=== PATIENT | female | born 1960 | race Asian ===

== ENCOUNTER 2025-07-11 10:47 | Observation (INO) | payer OTHER, SELFPAY ==
[2025-07-11] VITALS (7 sets, daily range): BP systolic 106–156; BP diastolic 63–84; PULSE 64–75; RESP 16–18; TEMP 36.2–37.2; O2SAT 96–100; BMI 24.0
--- NOTE | 2025-07-11 11:08 | DI.RAD.S_ITS ---
PROCEDURE: XR CHEST 1V INDICATIONS: Chest Pain TECHNIQUE: One view of the chest was acquired. COMPARISON: None. FINDINGS: Surgical changes and devices: None. Lungs and pleura: Lungs are clear. No pleural effusions or pneumothorax. Mediastinum: Mediastinal contours appear normal. Heart size is normal. Bones and chest wall: No suspicious bony lesions. Overlying soft tissues appear unremarkable. IMPRESSION: No acute cardiopulmonary abnormality is seen. Dictated by: Chaz Diaz M.D. on 07/11/2025 at 11:56 Approved by: Chaz Diaz M.D. on 07/11/2025 at 11:57
--- NOTE | 2025-07-11 11:17 | EKG_ITS ---
[address] [address] Test Date: 2025-07-11 Pat Name: Alisia Thakkar Department: [facility] Room: Gender: Female Tax Representative: BERNARDINO : 1960 Requested By: Order Number: [id number] Reading MD: Jesus Christian MD Measurements Intervals [place] Rate: 74 P: 45 SD: 162 QRS: -7 QRSD: 92 T: 7 QT: 408 QTc: 452 Interpretive Statements Normal sinus rhythm Incomplete right bundle branch block NO PRIOR TRACING Electronically Signed On 07-11-2025 17:18:31 PST by Jesus Christian MD
[2025-07-11] MEDS: ASPIRIN 81 MG CHEW TAB 324 MG PO (11:20)
[2025-07-11 11:32] LABS: Add Manual Diff / Slide Review NO; Hematocrit 41.3 % (36-46); Hemoglobin 13.6 g/dL (12.0-16.0); Lymphocytes Absolute Auto 2000 /uL (1100-4500); Mean Corpuscular HGB Conc 33.1 % (30-36); Mean Corpuscular Hemoglobin 29.0 PG (26-34); Mean Corpuscular Volume 87.7 fL (80-100); Platelet Count 252 X10^3/uL (150-400)
[2025-07-11 11:37] LABS: INR 1.0 (0.9-1.3); Prothrombin Time 11.6 SECONDS (9.4-12.5)
--- NOTE | 2025-07-11 11:38 | ED.CHESTPAIN ---
HPI - Chest Pain <Millicent Gutierrez PA-C - Last Filed: 07/11/25 18:24> General Chief Complaint: Chest Pain Stated Complaint: weak, dizzy, shaky 4 days Time Seen by Provider: 07/11/25 11:34 History of Present Illness HPI narrative: Ms. Thakkar is a very pleasant 64-year-old female, from the [facility], speaks Tagalog, with a past medical history of cic-rugqirh-daawrvdcm T2 DM, HTN, HLD, hypothyroidism who presents to the emergency department with her daughter for concern of indigestion/chest pain, nausea, vomiting, weakness and dizziness/shakiness x4 days. Patient moved here from the [facility] in December. She is helping take care of her granddaughter. She has been sleeping less because of this. However since Tuesday she has been reporting indigestion/substernal chest burning and pressure, 2 episodes of nonbloody vomiting, and the feeling of being off balance. Occasional diarrhea. Exercise makes the chest pain worse and resting makes it better however it is still present at rest. She has also been feeling some shortness of breath. She denies lower abdominal pain, dysuria, hematuria, constipation. No recent medication changes. She has been compliant with levothyroxine, metformin, telmisartan, atorvastatin, hydroxyzine as needed for anxiety. She denies any cardiac history. No blood thinner use. No medication allergies. Her daughter translates for her. Related Data Allergies Allergy/AdvReac Type Severity Reaction Status Date / Time No Known Drug Allergies Allergy Verified 07/11/25 11:05 Review of Systems <Millicent Gutierrez PA-C - Last Filed: 07/11/25 18:24> Review of Systems ROS Unobtainable: All systems reviewed & are unremarkable except as noted in HPI and below Exam <Millicent Gutierrez PA-C - Last Filed: 07/11/25 18:24> Narrative Exam Narrative: GENERAL: 64 year old patient appears stated age. Well-developed patient, in no acute distress. HEAD: Atraumatic. Normocephalic. EYES: PERRL. Extraocular motions intact. No scleral icterus. No injection or drainage. ENT: Nose without bleeding, purulent drainage. Airway patent. NECK: Trachea midline. Cervical ROM intact. CARDIOVASCULAR: Regular rate and rhythm. RESPIRATORY: ?Nonlabored respirations. ?Speaking in clear, full sentences. ?Clear to auscultation. Breath sounds equal bilaterally. No wheezes, rales, or rhonchi. ? GASTROINTESTINAL: Abdomen soft, non-tender, nondistended. Bs present. Negative Sahni sign. EXTREMITIES: No LE edema. BACK: Nontender. NEURO: AOx3. ?Clear speech. ?Moves all 4 extremities appropriately. Normal abjfaz-mcba-stopyb. No pronator drift. No facial asymmetry. SKIN: No rash or erythema of visible areas Initial Vital Signs Initial Vital Signs: Vital Signs Temperature 98.6 F 07/11/25 11:05 Pulse Rate 75 07/11/25 11:05 Respiratory Rate 16 07/11/25 11:05 Blood Pressure 156/84 H 07/11/25 11:05 Pulse Oximetry 99 07/11/25 11:05 Oxygen Delivery Method Room Air 07/11/25 11:05 <Radha Villarreal DO - Last Filed: 07/11/25 19:03> Initial Vital Signs Initial Vital Signs: Vital Signs Temperature 98.6 F 07/11/25 11:05 Pulse Rate 75 07/11/25 11:05 Respiratory Rate 16 07/11/25 11:05 Blood Pressure 156/84 H 07/11/25 11:05 Pulse Oximetry 99 07/11/25 11:05 Oxygen Delivery Method Room Air 07/11/25 11:05 Scores <Millicent Gutierrez PA-C - Last Filed: 07/11/25 18:24> HEART Score Heart Score history: Slightly Suspicious Heart Score EKG: Non-Specific repolarization disturbance Heart Score Age: 45-64 years old Heart Score risk factors: > 3 risk factors or hx of atherosclerotic disease Heart Score troponin: < or = to normal limit Heart Score Total: 4 <Radha Villarreal DO - Last Filed: 07/11/25 19:03> HEART Score Heart Score Total: 4 Course <CONSUELO Hankins Last Filed: 07/11/25 18:24> Orders Ordered: ED Orders 07/11/25 11:08 XR chest 1V Stat EKG-12 Lead Stat 07/11/25 11:15 Complete Blood Count AUTO DIFF Stat Comprehensive Metabolic Panel Stat Lipase Stat Magnesium Stat NT-proBNP (BNP-Adult 18+) Stat PTT Partial Thromboplastin Roosevelt Stat Prothrombin Time INR Stat Troponin & CK Cardiac Panel Stat 07/11/25 13:15 Trop I [Troponin I] Stat 07/11/25 13:57 EKG-12 Lead Stat Acetaminophen (Acetaminophen 325 Mg Tablet) 650 mg PO Q6H PRN PRN Reason: Fever/Mild Pain (1-3) Heparin Sodium/Dextrose (Heparin Drip) 25,000 unit in 500 mls @ 15.241 mls/hr IV CONT MAURA; Protocol Last Admin: 07/11/25 18:24 Dose: 12 units/kg/hr, 15.241 mls/hr Documented By: MELODY Co-signed By: JESSEE Naloxone HCl (Naloxone 0.4 Mg/Ml Vial) 0.2 mg IV Q2MIN PRN PRN Reason: Opiate Reversal Discontinued Medications Aspirin (Aspirin 81 Mg Chew Tab) 324 mg PO NOW ONE Stop: 07/11/25 11:09 Last Admin: 07/11/25 11:20 Dose: 324 mg Documented By: GEORGE Al Hydrox/Mg Hydrox/Simethicone 30 ml/ Lidocaine HCl 15 ml 0 ml PO NOW ONE Stop: 07/11/25 11:56 Last Admin: 07/11/25 12:58 Dose: 45 ml Documented By: MIMI Heparin Sodium (Porcine) (Heparin 5,000 Unit/Ml Vial) 4,000 unit 60 unit/kg (4000 unit) IV NOW ONE Stop: 07/11/25 16:47 Last Admin: 07/11/25 18:23 Dose: 4,000 unit Documented By: MELODY Sodium Chloride (Normal Saline 0.9%) 1,000 mls @ 1,000 mls/hr IV BOLUS ONE Stop: 07/11/25 12:54 Last Infusion: 07/11/25 13:48 Dose: Infused Documented By: Admin: 07/11/25 12:57 Dose: 1,000 mls/hr Documented By: MIMI Meclizine HCl (Meclizine Hcl 12.5 Mg Tablet) 25 mg PO NOW ONE Stop: 07/11/25 11:56 Last Admin: 07/11/25 12:58 Dose: 25 mg Documented By: MIMI Vital Signs Vital signs: Vital Signs - 8 hr 07/11/25 11:05 07/11/25 11:47 07/11/25 15:30 Temperature 98.6 F 98.9 F Pulse Rate 75 68 71 Respiratory Rate 16 16 16 Blood Pressure 156/84 H 147/65 H 139/63 Pulse Oximetry 99 98 100 Oxygen Delivery Method Room Air Room Air <Radha Villarreal DO - Last Filed: 07/11/25 19:03> Orders Ordered: ED Orders 07/11/25 11:08 XR chest 1V Stat EKG-12 Lead Stat 07/11/25 11:15 Complete Blood Count AUTO DIFF Stat Comprehensive Metabolic Panel Stat Lipase Stat Magnesium Stat NT-proBNP (BNP-Adult 18+) Stat PTT Partial Thromboplastin Roosevelt Stat Prothrombin Time INR Stat Troponin & CK Cardiac Panel Stat 07/11/25 13:15 Trop I [Troponin I] Stat 07/11/25 13:57 EKG-12 Lead Stat Acetaminophen (Acetaminophen 325 Mg Tablet) 650 mg PO Q6H PRN PRN Reason: Fever/Mild Pain (1-3) Heparin Sodium/Dextrose (Heparin Drip) 25,000 unit in 500 mls @ 15.241 mls/hr IV CONT MAURA; Protocol Last Admin: 07/11/25 18:24 Dose: 12 units/kg/hr, 15.241 mls/hr Documented By: MELODY Co-signed By: JESSEE Naloxone HCl (Naloxone 0.4 Mg/Ml Vial) 0.2 mg IV Q2MIN PRN PRN Reason: Opiate Reversal Discontinued Medications Aspirin (Aspirin 81 Mg Chew Tab) 324 mg PO NOW ONE Stop: 07/11/25 11:09 Last Admin: 07/11/25 11:20 Dose: 324 mg Documented By: GEORGE Al Hydrox/Mg Hydrox/Simethicone 30 ml/ Lidocaine HCl 15 ml 0 ml PO NOW ONE Stop: 07/11/25 11:56 Last Admin: 07/11/25 12:58 Dose: 45 ml Documented By: MIMI Heparin Sodium (Porcine) (Heparin 5,000 Unit/Ml Vial) 4,000 unit 60 unit/kg (4000 unit) IV NOW ONE Stop: 07/11/25 16:47 Last Admin: 07/11/25 18:23 Dose: 4,000 unit Documented By: MELODY Sodium Chloride (Normal Saline 0.9%) 1,000 mls @ 1,000 mls/hr IV BOLUS ONE Stop: 07/11/25 12:54 Last Infusion: 07/11/25 13:48 Dose: Infused Documented By: Admin: 07/11/25 12:57 Dose: 1,000 mls/hr Documented By: [facility] Meclizine HCl (Meclizine Hcl 12.5 Mg Tablet) 25 mg PO NOW ONE Stop: 07/11/25 11:56 Last Admin: 07/11/25 12:58 Dose: 25 mg Documented By: [facility] Vital Signs Vital signs: Vital Signs - 8 hr 07/11/25 11:05 07/11/25 11:47 07/11/25 15:30 Temperature 98.6 F 98.9 F Pulse Rate 75 68 71 Respiratory Rate 16 16 16 Blood Pressure 156/84 H 147/65 H 139/63 Pulse Oximetry 99 98 100 Oxygen Delivery Method Room Air Room Air MDM - Chest Pain <Millicent Gutierrez PA-C - Last Filed: 07/11/25 18:24> Medical Records Data Medical records narrative: None available. Lab Data 07/11/25 11:15 07/11/25 11:15 Labs: Lab Results 07/11/25 07/11/25 Range/Units 11:15 13:15 WBC 7.1 (4.5-11.0) X10^3/uL RBC 4.71 (4.0-5.2) X10^6/uL Hgb 13.6 (12.0-16.0) g/dL Hct 41.3 (36-46) % MCV 87.7 (80-100) fL MCH 29.0 (26-34) PG MCHC 33.1 (30-36) % RDW 13.7 (11.6-14.8) % Plt Count 252 (150-400) X10^3/uL Neut % (Auto) 66.0 (50-75) % Lymph % (Auto) 27.6 (25-40) % Sherman % (Auto) 5.6 (3-14) % Eos % (Auto) 0.4 L (2-4) % Baso % (Auto) 0.4 (0-2) % Neut # (Auto) 4700 (9256-8864) /uL Lymph # (Auto) 2000 (9930-0435) /uL Sherman # (Auto) 400 (0-900) /uL Eos # (Auto) 0 (0-450) /uL Baso # (Auto) 0 (0-100) /uL PT 11.6 (9.4-12.5) SECONDS INR 1.0 (0.9-1.3) APTT 30 (25.1-36.5) SECONDS Sodium 141 (137-145) mmol/L Potassium 3.9 (3.4-5.1) mmol/L Chloride 106 (98-107) mmol/L Carbon Dioxide 27 (22-32) mmol/L BUN 14 (7-17) mg/dL Creatinine 0.74 (0.52-1.04) mg/dL Estimated GFR > 60 (>60) mL/min BUN/Creatinine Ratio 18.9 (6-22) Glucose 118 H (70-99) mg/dL Calcium 9.1 (8.4-10.2) mg/dL Magnesium 2.2 (1.6-2.3) mg/dL Total Bilirubin 0.7 (0.2-1.3) mg/dL AST 27 (14-36) IU/L ALT 22 (<35) IU/L Alkaline Phosphatase 59 (38-126) U/L Total Creatine Kinase 85 (30-135) U/L Troponin I < 0.012 < 0.012 (0.01-0.034) ng/mL NT-Pro-B Natriuret Pep < 20 (<125) pg/mL Total Protein 8.1 (6.3-8.2) g/dL Albumin 4.7 (3.5-5.0) g/dL Globulin 3.4 (1.7-4.1) g/dL Albumin/Globulin Ratio 1.4 (1.0-2.8) Lipase 92 (23-300) U/L Imaging Data Chest x-ray: Radiologist's Impression: PROCEDURE: XR CHEST 1V INDICATIONS: Chest Pain TECHNIQUE: One view of the chest was acquired. COMPARISON: None. FINDINGS: Surgical changes and devices: None. Lungs and pleura: Lungs are clear. No pleural effusions or pneumothorax. Mediastinum: Mediastinal contours appear normal. Heart size is normal. Bones and chest wall: No suspicious bony lesions. Overlying soft tissues appear unremarkable. IMPRESSION: No acute cardiopulmonary abnormality is seen. Dictated by: Chaz Diaz M.D. on 07/11/2025 at 11:56 Approved by: Chaz Diaz M.D. on 07/11/2025 at 11:57 ECG Data Interpretation: EKG reveals normal sinus rhythm with a rate of 74 beats per minute, QTC of 452. T-wave inversion V1, V3. [facility] Narrative Medical decision making narrative: 64-year-old female, from the [facility], speaks Tagalog, with a past medical history of lsr-rqmompm-ymmxhkhcc T2 DM, HTN, HLD, hypothyroidism who presents to the emergency department with her daughter for concern of indigestion, nausea, vomiting, weakness and dizziness/shakiness x4 days. Differential diagnosis includes but isn't limited to ACS/[place], angina, pneumonia, GERD, medication side effect, hypoglycemia, hyperglycemia, vertigo, etc. On exam the patient is in no acute distress, nontoxic appearing, vital signs appropriate. She has no reproducible nystagmus, no facial asymmetry, no pronator drift, normal [id number]-yxjp-yirdtr. She is reporting multiple symptoms but primarily increased indigestion/reflux associated with feeling off balance, 2 episodes of nonbloody vomiting and also some increased loose stools. No cardiac history but she does have risk factors including diabetes, hyperlipidemia, hypertension. Concerned for possible atypical ACS. Chest pain order set initiated in triage, patient given aspirin. EKG reviewed with the attending Dr. Villarreal, T-wave inversion V3. Chest x-ray reveals no acute cardiopulmonary abnormality. Labs within normal limits, troponin undetectable x2, negative BNP, no elevation of LFTs. No abdominal tenderness on subsequent exams. Heart score 4. Repeat troponin undetectable. However patient's EKG does have some subtle changes with T-wave inversions anterior leads. No improvement in symptoms after aspirin, GI cocktail, meclizine, IVF. She still feels chest pressure. We will talk with Cardiology given patient risk factors and EKG findings. 1615: Discussed the case with the customer development representative, Dr. Mondragon. He recommends admission for stress test. He recommends admission to medicine and he will consult. I spoke with hospitalist, Dr. Grullon. Given patient's concerning EKG findings, he had a discussion with Dr. Mondragon and it was determined to start the patient on heparin. I reviewed bleeding risk factors with the patient and she denies any hematemesis, melena, hematochezia, hematuria, recent trauma, prior hemorrhagic stroke or any other concern for bleeding risk at this time. She is agreeable to start heparin. Patient is stable for transfer to the floor at this time, all questions answered. <Radha Villarreal, DO - Last Filed: 07/11/25 19:03> Lab Data Labs: Lab Results 07/11/25 07/11/25 Range/Units 11:15 13:15 WBC 7.1 (4.5-11.0) X10^3/uL RBC 4.71 (4.0-5.2) X10^6/uL Hgb 13.6 (12.0-16.0) g/dL Hct 41.3 (36-46) % MCV 87.7 (80-100) fL MCH 29.0 (26-34) PG MCHC 33.1 (30-36) % RDW 13.7 (11.6-14.8) % Plt Count 252 (150-400) X10^3/uL Neut % (Auto) 66.0 (50-75) % Lymph % (Auto) 27.6 (25-40) % Sherman % (Auto) 5.6 (3-14) % Eos % (Auto) 0.4 L (2-4) % Baso % (Auto) 0.4 (0-2) % Neut # (Auto) 4700 (5068-1406) /uL Lymph # (Auto) 2000 (5624-4068) /uL Sherman # (Auto) 400 (0-900) /uL Eos # (Auto) 0 (0-450) /uL Baso # (Auto) 0 (0-100) /uL PT 11.6 (9.4-12.5) SECONDS INR 1.0 (0.9-1.3) APTT 30 (25.1-36.5) SECONDS Sodium 141 (137-145) mmol/L Potassium 3.9 (3.4-5.1) mmol/L Chloride 106 (98-107) mmol/L Carbon Dioxide 27 (22-32) mmol/L BUN 14 (7-17) mg/dL Creatinine 0.74 (0.52-1.04) mg/dL Estimated GFR > 60 (>60) mL/min BUN/Creatinine Ratio 18.9 (6-22) Glucose 118 H (70-99) mg/dL Calcium 9.1 (8.4-10.2) mg/dL Magnesium 2.2 (1.6-2.3) mg/dL Total Bilirubin 0.7 (0.2-1.3) mg/dL AST 27 (14-36) IU/L ALT 22 (<35) IU/L Alkaline Phosphatase 59 (38-126) U/L Total Creatine Kinase 85 (30-135) U/L Troponin I < 0.012 < 0.012 (0.01-0.034) ng/mL NT-Pro-B Natriuret Pep < 20 (<125) pg/mL Total Protein 8.1 (6.3-8.2) g/dL Albumin 4.7 (3.5-5.0) g/dL Globulin 3.4 (1.7-4.1) g/dL Albumin/Globulin Ratio 1.4 (1.0-2.8) Lipase 92 (23-300) U/L Discharge Plan Departure Patient Disposition: Admitted as Observation Clinical Impression: Chest pain Qualifiers: Chest pain type: unspecified Qualified Code(s): R07.9 - Chest pain, unspecified Admit Date/Time: 07/11/25 17:14 Admit Provider: Triston Grullon ED Sign-out <Radha Villarreal DO - Last Filed: 07/11/25 19:03> Cosign ED Attending Cosignature Attestation: I was immediately available in the department for consultation. Patient case discussed. Concern for potential cardiac cause of symptoms Labs were reviewed, troponins negative x2, BNP is less than 20. Chest x-ray shows no acute cardiopulmonary abnormality. EKG 1. Showed sinus rhythm nonspecific change T-wave inverted in V3 and 3 but not appreciated in other leads contiguously. On repeat EKG patient appears to have T-wave inverted in V3 and V4. Plan for observation case was discussed with the cardiology, Dr. Villarreal and hospitalist who also confirmed with Cardiology. Dr. Grullon accepts has asked us to start heparin drip.
[2025-07-11 11:40] LABS: Alanine Aminotransferase 22 IU/L (<35); Albumin 4.7 g/dL (3.5-5.0); Albumin Globulin Ratio 1.4 (1.0-2.8); Alkaline Phosphatase 59 U/L (38-126); Blood Urea Nitrogen 14 mg/dL (7-17); Calcium 9.1 mg/dL (8.4-10.2); Carbon Dioxide 27 mmol/L (22-32); Chloride 106 mmol/L (98-107); Creatine Kinase 85 U/L (30-135); Estimated Glomerular Filt Rate > 60 mL/min (>60); Globulin 3.4 g/dL (1.7-4.1); Glucose 118 mg/dL (70-99); HEMOLYSIS < 15 (0-50); Lipase 92 U/L (23-300); Magnesium 2.2 mg/dL (1.6-2.3); PTT Partial Thromboplastin Tim 30 SECONDS (25.1-36.5); Potassium 3.9 mmol/L (3.4-5.1); Sodium 141 mmol/L (137-145); Total Protein 8.1 g/dL (6.3-8.2)
[2025-07-11 11:52] LABS: NT-proBNP (BNP-Adult 18+) < 20 pg/mL (<125); Troponin I < 0.012 ng/mL (0.01-0.034)
[2025-07-11] MEDS: SODIUM CHLORIDE 0.9% 1,000 ML 1000 ML IV (12:57)
[2025-07-11] MEDS: MAG HYDROX/ALUMINUM/SIMETH SUS 30 ML, LIDOCAINE VISCOUS 2% 15 ML PO (12:58)
[2025-07-11] MEDS: MECLIZINE HCL 12.5 MG TABLET 25 MG PO (12:58)
[2025-07-11 13:52] LABS: Troponin I < 0.012 ng/mL (0.01-0.034)
--- NOTE | 2025-07-11 13:57 | EKG_ITS ---
[facility] [address] [place] [address] Test Date: 2025-07-11 Pat Name: Alisia Thakkar Department: Room: Gender: Female Photo Mask Inspector: BERNARDINO : 1960 Requested By: Order Number: [id number] Reading MD: Jesus Christian MD Measurements Intervals Tyler Rate: 67 P: 47 DC: 170 QRS: -10 QRSD: 84 T: -9 QT: 430 QTc: 454 Interpretive Statements Normal sinus rhythm Nonspecific ST and T wave abnormality Electronically Signed On 07-11-2025 17:19:07 PST by Jesus Christian MD
--- NOTE | 2025-07-11 17:59 | P.HP_ITS ---
History of Present Illness History of Present Illness Date Patient Seen: 07/11/25 Time Patient Seen: 17:50 Chief complaint: weak, dizzy, shaky 4 days Narrative: 64-year-old woman from the [facility] who has lived with her daughter for the past year, speaking Tagalog and a small amount of Czech, with translation provided by her daughter at bedside today, presents with chest pressure for the past several days, nausea, vomiting, weakness and dizziness. She reports that the chest discomfort and burning feeling seems worse with exertion. She also has a longstanding history of indigestion and ?acid? symptoms and occasional diarrhea. In the emergency department her heart score was 4, and EKG showed variable dynamic T-wave changes detailed below, with normal laboratory evaluation and to serial negative troponins. Cardiology was consulted and recommend heparinization and evaluation to include stress testing and possible angiography. Past medical history: Diabetes, hypertension, hyperlipidemia, hypothyroidism. She denies history of heart problems. Medications: Metformin, telmisartan, atorvastatin, levothyroxine, hydroxyzine Allergies: No known drug allergies Social history: She is been in [place] since December, having moved from the [facility] to care for granddaughter. No history of tobacco use. No alcohol use or drug use. Family history: No known premature coronary artery disease. EXAM: GENERAL: This is a well-nourished, well-developed patient, in no apparent distress. EYES: Pupils equal round and reactive. Extraocular motions intact. No scleral icterus. No injection or drainage. ENT: Mucous membranes pink and moist. NECK: Trachea midline. No JVD, bruits or lymphadenopathy. Supple, nontender, no meningeal signs. CARDIOVASCULAR: Regular rate and rhythm without murmurs, gallops, or rubs. RESPIRATORY: Clear to auscultation. GASTROINTESTINAL: Abdomen soft, non-tender, nondistended. EXTREMITIES: No clubbing, cyanosis, or edema. NEUROLOGIC: Alert, oriented, speech fluent, full upper and lower motor strength, no focal deficits evident. DERMATOLOGIC: No rashes or skin lesions. EKG #1 at 11:17 a.m.: Normal sinus rhythm at 74 beats minute, incomplete right bundle branch block pattern, T-wave inversions V1 through V3 EKG #2 at 1:57 p.m.: Normal sinus rhythm at 67 beats per minute, incomplete right bundle branch block pattern, T-wave in lead V1 through V4 Chest x-ray 07/11/2025: No acute cardiopulmonary abnormality is seen. Impression: 1. Chest pain, rule out atypical acute coronary syndrome. 2. Diabetes. 3. Hypertension. 4. Hyperlipidemia. 5. Hypothyroidism. Plan: -admit to observation -nuclear medicine stress testing -IV heparin infusion -serial cardiac enzymes -monitor on telemetry -continue routine medications -sliding scale insulin coverage/diabetic diet DVT prophylaxis: Addressed on heparin Code status: Full code. Her daughter is her surrogate decision maker. Meds Home Medications and Allergies Allergies Allergy/AdvReac Type Severity Reaction Status Date / Time No Known Drug Allergies Allergy Verified 07/11/25 11:05 Exam Vital Signs (past 8 hours): - 07/11/25 11:05 07/11/25 11:47 07/11/25 15:30 Temperature 98.6 F 98.9 F Pulse Rate 75 68 71 Respiratory Rate 16 16 16 Blood Pressure 156/84 H 147/65 H 139/63 Pulse Oximetry 99 98 100 Oxygen Delivery Method Room Air Room Air Oxygen Delivery Method Room Air Objective Labs 07/11/25 11:15 07/11/25 11:15 Labs: Laboratory Results - last 24 hr 07/11/25 07/11/25 11:15 13:15 WBC 7.1 RBC 4.71 Hgb 13.6 Hct 41.3 MCV 87.7 MCH 29.0 MCHC 33.1 RDW 13.7 Plt Count 252 Neut % (Auto) 66.0 Lymph % (Auto) 27.6 Jessamine % (Auto) 5.6 Eos % (Auto) 0.4 L Baso % (Auto) 0.4 Neut # (Auto) 4700 Lymph # (Auto) 2000 Jessamine # (Auto) 400 Eos # (Auto) 0 Baso # (Auto) 0 PT 11.6 INR 1.0 APTT 30 Sodium 141 Potassium 3.9 Chloride 106 Carbon Dioxide 27 BUN 14 Creatinine 0.74 Estimated GFR > 60 BUN/Creatinine Ratio 18.9 Glucose 118 H Calcium 9.1 Magnesium 2.2 Total Bilirubin 0.7 AST 27 ALT 22 Alkaline Phosphatase 59 Total Creatine Kinase 85 Troponin I < 0.012 < 0.012 NT-Pro-B Natriuret Pep < 20 Total Protein 8.1 Albumin 4.7 Globulin 3.4 Albumin/Globulin Ratio 1.4 Lipase 92 Assessment & Plan Time-Based Coding :: [TOTAL MINUTES] spent with patient and on the chart (including review of chart, obtaining history, exam, reviewing outside data, placing orders, documenting exam and treatment plan, and counseling patient) on [DATE]. PROFEE [employer] Document charge(s): Yes
--- NOTE | 2025-07-11 18:17 | DI.NM.S_ITS ---
PROCEDURE: NM SHEY PERF SPECT REST & STR Rest and exercise myocardial perfusion SPECT with gated imaging and ejection fraction RADIOPHARMACEUTICAL: 10.8 mCi Tc-99m sestamibi IV at rest and 26.1 mCi Tc-99m sestamibi IV at peak exercise. A 8-een-fkvscbor was performed. INDICATIONS: Chest pain TECHNIQUE: Radiopharmaceutical was injected at peak stress test, and also at rest. SPECT images were obtained. SPECT myocardial perfusion images were displayed in short axis, horizontal long axis, and vertical long axis views. Gated images were reviewed using [employer] software. COMPARISON: None. CARDIAC STRESS: A standard Carlos A treadmill exercise tolerance test was performed by the patient under the supervision of an attending staff. The patient exercised for 3 minutes and 43 seconds; 4.6 METS; functional aerobic impairment (JAYLIN) is +43%. Hemodynamic data: There is normal blood pressure response to exercise stress but an accelerated heart rate response. Patient achieved 92% of maximum predicted heart rate at peak exercise. Peak blood pressure 180/88. Symptoms: Patient denied chest pain during exercise. EKG: No diagnostic EKG changes of ischemia; no ectopy. FINDINGS: Raw data: There is good myocardial labeling by radiotracer. No significant motion artifacts. Odzb-fg-mkznc ratio is 0.21 (normal is less than 0.38 for sestamibi tracer, and less than 0.50 for thallium tracer). Left ventricle function: Gated images demonstrate normal left ventricle wall thickening. No segmental wall motion abnormality. No transient ischemic dilation; TID is 0.95 (normal less than 1.3). The left ventricle resting end-diastolic volume is 80 mL. Left ventricle stress ejection fraction is >75%; normal values are above 45%. Myocardial perfusion: There is normal distribution of activity in the left and right ventricular myocardium. No fixed or reversible perfusion defects. IMPRESSION: Low risk study for ischemia. No evidence of exercise-induced ischemia on ECG or SPECT imaging. Normal LV size with hyperdynamic function. Accelerated heart rate response. Normal blood pressure response. Reduced exercise capacity. Dictated by: Zoe Chris D.O. on 07/12/2025 at 13:04 Approved by: Zoe Chris D.O. on 07/12/2025 at 13:07
[2025-07-11] MEDS: HEPARIN 5,000 UNIT/ML VIAL 4000 UNIT IV (18:23)
[2025-07-11] MEDS: HEPARIN DRIP 25,000 UNIT/500 ML IV.SOLN 15.241 UNIT IV (18:24)
--- NOTE | 2025-07-11 18:55 | PC.NURSE ---
Pt arrived from ED to short stay unit at 1813, ambulated independently into room/bed. Tele fire protection engineer in [facility] used for assessment. A&Ox4, c/o pain 5/10 chest pain, lung sounds CTA, bowel sounds present, CMS+ bilaterally throughout. Tele placed per orders, SB. Heparin gtt started per orders. Pt oriented to room and call light. Bed in low position, call light within reach, bed alarm activated.
[2025-07-11 22:30] LABS: Alanine Aminotransferase 20 IU/L (<35); Albumin 4.0 g/dL (3.5-5.0); Albumin Globulin Ratio 1.4 (1.0-2.8); Alkaline Phosphatase 57 U/L (38-126); Blood Urea Nitrogen 14 mg/dL (7-17); Calcium 8.6 mg/dL (8.4-10.2); Carbon Dioxide 24 mmol/L (22-32); Chloride 110 mmol/L (98-107); Estimated Glomerular Filt Rate > 60 mL/min (>60); Globulin 2.8 g/dL (1.7-4.1); Glucose 152 mg/dL (70-99); HEMOLYSIS < 15 (0-50); Potassium 3.3 mmol/L (3.4-5.1); Sodium 143 mmol/L (137-145); Total Protein 6.8 g/dL (6.3-8.2)
[2025-07-11 22:42] LABS: Troponin I < 0.012 ng/mL (0.01-0.034)
[2025-07-12 01:52] LABS: PTT Partial Thromboplastin Tim 172 SECONDS (25.1-36.5)
--- NOTE | 2025-07-12 02:06 | PC.NURSE ---
This RN used ruby rails developer Kiersten Tan #[id number] to educatie patient to room and plan of care. Patient acknowledged and all questions were answered with service.
[2025-07-12 03:50] VITALS: BP 108/66; PULSE 64; RESP 16; TEMP 36.5; O2SAT 97
[2025-07-12 07:41] LABS: Add Manual Diff / Slide Review NO; Hematocrit 37.7 % (36-46); Hemoglobin 12.8 g/dL (12.0-16.0); Lymphocytes Absolute Auto 1900 /uL (1100-4500); Mean Corpuscular HGB Conc 33.8 % (30-36); Mean Corpuscular Hemoglobin 29.5 PG (26-34); Mean Corpuscular Volume 87.3 fL (80-100); Platelet Count 226 X10^3/uL (150-400)
[2025-07-12 07:54] LABS: Magnesium 2.3 mg/dL (1.6-2.3)
[2025-07-12 07:55] LABS: Cholesterol 75 mg/dL (140-199); HDL Cholesterol 36 mg/dL (40-60); Triglycerides 55 mg/dL (35-150)
[2025-07-12 07:59] LABS: Hemoglobin A1C% w Est Avg Glu 5.8 % (4.0-6.0)
[2025-07-12 08:05] LABS: Troponin I < 0.012 ng/mL (0.01-0.034)
[2025-07-12 08:27] LABS: Thyroid Stimulating Hormone 0.879 uIU/mL (0.47-4.68)
--- NOTE | 2025-07-12 13:07 | P.DS_ITS ---
History of Present Illness History of Present Illness Date Patient Seen: 07/12/25 Time Patient Seen: 13:07 Chief complaint: weak, dizzy, shaky 4 days Narrative: 64-year-old woman from the [facility] who has lived with her daughter for the past year, speaking Tagalog and a small amount of Danish, with translation provided by her daughter at bedside today, presents with chest pressure for the past several days, nausea, vomiting, weakness and dizziness. She reports that the chest discomfort and burning feeling seems worse with exertion. She also has a longstanding history of indigestion and ?acid? symptoms and occasional diarrhea. In the emergency department her heart score was 4, and EKG showed variable dynamic T-wave changes detailed below, with normal laboratory evaluation and to serial negative troponins. Cardiology was consulted and recommend heparinization and evaluation to include stress testing and possible angiography. Social history: She is been in [place] since December, having moved from the [facility] to care for granddaughter. No history of tobacco use. No alcohol use or drug use. Discharge Providers Provider Date of admission: 07/11/25 17:14 Discharge Date: 07/12/25 Discharge provider: Afua Del Rio MD Summary Hospital Course Hospital Course: To Summarize: Cardiac scan notable for decreased exercise tolerance but normal imaging. In discussion with daughter and the patient it becomes clear that acid reflux is likely the cause of her symptoms so Protonix will be initiated. 1. Substernal Chest pain at rest/Weakness/Nausea, ruled out atypical acute coronary syndrome. 2. Diabetes. 3. Hypertension. 4. Hyperlipidemia. 5. Hypothyroidism. Plan: -Home and PCP followup -nuclear medicine stress testing negative for CAD -IV heparin infusion stopped -serial cardiac enzymes all negative Status at Discharge Cognitive/behavioral status at discharge: at baseline, oriented Functional status at discharge: independent ambulation Overall status at discharge: patient is back to baseline Time Spent with Patient Time spent: Less than 30 minutes Exam Vital Signs (past 8 hours): Oxygen Delivery Method Room Air Oxygen Flow Rate 0 Narrative Exam Narrative: Alert and oriented x3. Heart is regular rate and rhythm without murmur. Lungs are clear to auscultation bilaterally. Extremities have no ankle edema. Objective Labs 07/12/25 06:25 07/11/25 21:51 Labs: Laboratory Results - last 24 hr 12/11/25 12/11/25 12/11/25 13:15 18:53 21:51 WBC RBC Hgb Hct MCV MCH MCHC RDW Plt Count Neut % (Auto) Lymph % (Auto) [place] % (Auto) Eos % (Auto) Baso % (Auto) Neut # (Auto) Lymph # (Auto) [place] # (Auto) Eos # (Auto) Baso # (Auto) APTT Sodium 143 Potassium 3.3 L Chloride 110 H Carbon Dioxide 24 BUN 14 Creatinine 0.63 Estimated GFR > 60 BUN/Creatinine Ratio 22.2 H Glucose 152 H POC Whole Bld Glucose 100 H Hemoglobin A1c Calcium 8.6 Magnesium Total Bilirubin 0.6 AST 26 ALT 20 Alkaline Phosphatase 57 Troponin I < 0.012 < 0.012 Total Protein 6.8 Albumin 4.0 Globulin 2.8 Albumin/Globulin Ratio 1.4 Triglycerides Cholesterol LDL Cholesterol, Calc HDL Cholesterol TSH 07/12/25 07/12/25 07/12/25 01:19 06:25 06:35 WBC 6.5 RBC 4.32 Hgb 12.8 Hct 37.7 MCV 87.3 MCH 29.5 MCHC 33.8 RDW 13.6 Plt Count 226 Neut % (Auto) 62.2 Lymph % (Auto) 29.5 [place] % (Auto) 5.9 Eos % (Auto) 1.7 L Baso % (Auto) 0.7 Neut # (Auto) 4100 Lymph # (Auto) 1900 [place] # (Auto) 400 Eos # (Auto) 100 Baso # (Auto) 0 APTT 172 H* D Sodium Potassium Chloride Carbon Dioxide BUN Creatinine Estimated GFR BUN/Creatinine Ratio Glucose POC Whole Bld Glucose Hemoglobin A1c 5.8 Calcium Magnesium 2.3 Total Bilirubin AST ALT Alkaline Phosphatase Troponin I < 0.012 Total Protein Albumin Globulin Albumin/Globulin Ratio Triglycerides 55 Cholesterol 75 L LDL Cholesterol, Calc 28 HDL Cholesterol 36 L TSH 0.879 [facility] Medical History (Updated 07/12/25 @ 13:36 by Afua Del Rio MD) Diabetes mellitus HLD (hyperlipidemia) Hypothyroidism HTN (hypertension) Social History household members: family Smoking Status: Never smoker alcohol intake: never Discharge Plan Discharge Plan Patient Disposition: Home Provider Discharge Comment: Follow up with your PCP at [facility] in 2 weeks. Discharge orders & Medications Prescriptions: New pantoprazole [Protonix] 40 mg tablet,delayed release (DR/EC) 40 mg PO DAILY Qty: 90 0RF Continued atorvastatin 40 mg tablet 40 mg PO DAILY levothyroxine 75 mcg tablet 75 mcg PO DAILY hydroxyzine HCl 25 mg tablet 25 mg PO ONCE PM PRN (Reason: anxiety) telmisartan 20 mg tablet 30 mg PO DAILY metformin 500 mg tablet extended release 24 hr 500 mg PO BID Visit Report/Discharge Packet Instructions: Congestive Heart Failure (Alternative Therapy), Heart-Healthy Diet, Heart Healthy Physical Activity, Pantoprazole Stand Alone Forms: Congestive Heart Failure, Patient Portal/API, Stroke Signs & Symptoms Discharge Data Attending Provider: Triston Grullon Admit Date/Time: 07/11/25 17:14 Quality VTE Deep Vein Thrombosis/Pulmonary Embolism Present on Admission: No
[2025-07-12 13:16] VITALS: BP 120/79; PULSE 72
[2025-07-12] MEDS: LEVOTHYROXINE 75 MCG TABLET PO (13:16)
[2025-07-12] MEDS: POTASSIUM CHLORIDE 20 MEQ TAB 40 MEQ PO (13:16)
[2025-07-12] MEDS: LOSARTAN 25 MG TABLET 37.5 MG PO (13:16)
[2025-07-12 13:24] VITALS: BP 120/79; PULSE 72; RESP 16; TEMP 36.1; O2SAT 97
--- NOTE | 2025-07-12 13:30 | PC.NURSE ---
patient's IV heparin gtt paused and then discontinued per Dr. Bañuelos for stress test today. Patient NPO this morning prior, denies pain, denies questions or concerns. Patient back from test and her daughter is at bedside. Dr. Del Rio down to see patient and discharge her to home.
--- NOTE | 2025-07-12 13:51 | CM.DANOTE ---
Initial DCP Assessment Note. Review EMR and PT Interview. Met with patient at bedside to discuss discharge needs.PT is alert x 4 sitting up in chair. No acute distress. Independent. Lives with Ronny DANIEL.. Payor:??[facility] PCP: ?[facility] Summary & Plan:?64 y/o female arrived to ED via POV c/o Chest Pain. Admitted OBS. Dx. Chest Pain. Plan: Cardiology consult. Stress Test. Discharge Planning/Care Management CM Discharge Assessment Start: 07/11/25 18:13 Freq: Status: Active Protocol: Document 07/12/25 13:50 SM (Rec: 07/12/25 13:51 SM [id number]) Discharge Planning Assessment Assigned Discharge Lorene Bernal RN CM Crossbar Switch Adjuster Provider [facility]. Insurance [facility] Advance Directives? No History Provided By Patient,Family Member Has Patient been No admitted in last 30 days? Prior Living House Arrangements Household Members family Type of Relies on Others transporation used prior to admit Independent with ADL Yes 's Is patient alert and Yes oriented? Barriers to No Discharge Referrals Initiated None needed Review Status In Process Please Provide Date 07/12/25 Initial DC Assessment Was Performed Next Review Type Continued Stay Review
--- NOTE | 2025-07-12 14:06 | PC.NURSE ---
patient d/c teaching done at bedside with daughter present. Patinet IV and tele tue. removed. Pt tani. well. Pt. was able to sign for self. Agrees and understands all d/c instructions. States she has a appt. w/ PCP on Tuesday, advised pt and family to keep appt. Pt req. to walk and declined use of a WC at d/c. Patient and family where escorted out to private vehicle by nurse from Urology clinic ([facility]). Patient leaves in stable condition, VSS.
== END 2025-07-12 14:19 | disposition home or self-care (01) ==
LOC: ED 11:34 → AC 17:15 → SSU 18:53
PROVIDERS: Emergency Medicine; Internal Medicine; Admitting Provider Hospitalist; Emergency Provider Physician Assistant; Referring Provider Physician Assistant; Visit Provider Hospitalist
DX: R07.9 Chest pain, unspecified (principal); E11.9 Type 2 diabetes mellitus without complications; I10 Essential (primary) hypertension; E78.5 Hyperlipidemia, unspecified; E03.9 Hypothyroidism, unspecified; Z79.84 Long term (current) use of oral hypoglycemic drugs; F41.9 Anxiety disorder, unspecified; R53.1 Weakness; R11.2 Nausea with vomiting, unspecified; R42 Dizziness and giddiness; K30 Functional dyspepsia; R19.7 Diarrhea, unspecified
CPT/HCPCS: 36415; 71045; 78452; 80053; 80061; 82550; 82962; 83036; 83690; 83735; 83880; 84443; 84484; 85025; 85610; 85730; 93005; 93017; 96365; 96366; 99284; G0378; A9502; J1644; J7030